=== PATIENT | male | born 1990 | race Caucasian/White ===

== ENCOUNTER 2017-09-03 18:30 | Emergency (ER) | payer OTHER ==
[~2017-09-03] VITALS: Ht 152.4 cm; Wt 81.6 kg
[2017-09-03 18:43] VITALS: BP 143/88; Ht 152.4 cm; Wt 81.6 kg
== END 2017-09-03 19:31 | disposition home or self-care (01) ==
LOC: ED 18:30
DX: H66.93 Otitis media, unspecified, bilateral (principal); J45.909 Unspecified asthma, uncomplicated